=== PATIENT | male | born 1995 | race Caucasian/White ===

== ENCOUNTER 2017-08-03 02:35 | Emergency (ER) | payer BC ==
[2017-08-03 02:43] VITALS: BP 144/75; PULSE 136; RESP 18; TEMP 98.8; O2SAT 93
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
== END 2017-08-03 03:51 | disposition home or self-care (01) ==
DX: S93.602A Unspecified sprain of left foot, initial encounter (principal); Y04.0XXA Assault by unarmed brawl or fight, initial encounter; Y99.8 Other external cause status; F17.210 Nicotine dependence, cigarettes, uncomplicated
CPT/HCPCS: L3260

== ENCOUNTER → 2017-08-05 | Outpatient (CLI) | payer BC | LOC: FIMAGING 12:19 | PROVIDERS: ATTEND Physician Assistant | DX: R07.81 Pleurodynia (principal) ==